=== PATIENT | male | born 1960 | race Caucasian/White ===

== ENCOUNTER 2018-06-23 08:58 | Day surgery (SDC) | payer OTHER, SELFPAY ==
[2018-06-23 09:28] VITALS: BP 121/74; PULSE 68; RESP 16; TEMP 36.3; O2SAT 95; BMI 25.5
[2018-06-23] MEDS: MIDAZOLAM 5 MG/5 ML VIAL IV (11:17)
[2018-06-23] MEDS: fentaNYL 250 MCG/5 ML INJ IV (11:17)
[2018-06-23 11:29] VITALS: BP 103/69; PULSE 59; RESP 14; O2SAT 98
--- NOTE | 2018-06-23 11:32 | PM.PREOP ---
Pre-operative Note Interval Note History & Physical reviewed/Exam performed by Physician: Yes Changes to H&P: No ASA Class (for procedural sedation): II
[2018-06-23 11:35] VITALS: BP 105/68; PULSE 58; RESP 11; O2SAT 98
--- NOTE | 2018-06-23 11:36 | PM.OP.ENDO ---
Operative Date/Time/Diagnoses Date of procedure: 06/23/18 Procedure & Clinicians Study performed: Colonoscopy Sedation: 3 mg midazolam. 100 mcg fentanyl. Moderate conscious sedation was administered by the endoscopy nurse and supervised by the endoscopist. The following parameters were monitored: Oxygen saturation, heart rate, blood pressure, and response to care. Indications: Colon cancer screening. Personal history of colon polyps. Last colonoscopy was 2012. Procedure Notes Procedure in detail: Prior to the procedure, history and physical was performed, and patient medications and allergies were reviewed. Preprocedure nursing history and assessment was reviewed. Patient identification and proposed procedure were verified by the physician and nurse in the procedure room. The physical status of the patient was reassessed after the procedure. After informed consent was obtained including risks, benefits, and alternatives, the scope was passed under direct vision. Throughout the procedure, the patient's blood pressure, pulse, and oxygen saturations were monitored continuously. The colonoscope was introduced through the anus and advanced to the cecum as identified by the appendiceal orifice and ileocecal valve. The patient tolerated the procedure well. Bowel prep was deemed adequate to detect polyps greater than 5 mm. KATIE and perianal examinations were unremarkable. Retroflexion revealed grade I internal hemorrhoids. The colon was otherwise normal appearing. Impression: Internal hemorrhoids No specimens collected Sedation minutes: 17 Complications: other (None. EBL none.) Plan for aftercare: Repeat colonoscopy for screening purposes in 5 years. Resume home medications Resume previous diet Discharged home with escort
[2018-06-23 11:39] VITALS: BP 101/66; PULSE 59; RESP 13; O2SAT 98
[2018-06-23 11:44] VITALS: BP 107/68; PULSE 69; RESP 15; O2SAT 99
[2018-06-23 12:00] VITALS: BP 110/69; PULSE 66; RESP 16; TEMP 36.7; O2SAT 100
--- NOTE | 2018-06-23 12:18 | SUR.PHASEII ---
stable phase 2 dischargedm in stable condition when ready to go.
--- NOTE | 2018-07-21 16:56 | PM.HP.1 ---
History of Present Illness Chief complaint: [id number] Colonoscopy Patient History Social History household members: spouse Family & Social History Social History: household members spouse Meds Home Medications Medication Instructions Recorded Confirmed Type aspirin 81 mg PO DAILY 06/23/18 06/23/18 History atorvastatin 40 mg PO DAILY 06/23/18 06/23/18 History bupropion HCl 450 mg PO DAILY 06/23/18 06/23/18 History cetirizine 10 mg PO DAILY 06/23/18 06/23/18 History metoprolol succinate [Toprol XL] 12.5 mg PO DAILY 06/23/18 06/23/18 History Allergies Allergy/AdvReac Type Severity Reaction Status Date / Time No Known Drug Allergies Allergy Verified 06/23/18 09:33 Review of Systems Review of Systems All systems reviewed & are unremarkable except as noted in HPI and below Exam Vital Signs (past 8 hours): Oxygen Delivery Method Room Air Narrative Exam Narrative: Awake alert oriented x3, pupils equal round reactive to light, heart regular rate and rhythm, lungs clear to auscultation bilaterally, abdomen soft nontender nondistended, no lower extremity edema Assessment & Plan Assessment & Plan narrative: Colon cancer screening, colonoscopy
== END 2018-06-23 12:17 ==
PROVIDERS: Visit Provider Internal Medicine
PROC: 0DJD8ZZ Inspection of Lower Intestinal Tract, Via Natural or Artificial Opening Endoscopic (ICD-10-PCS; CPT 45378; principal; 2018-06-23 10:30)
DX: Z86.010 Personal history of colon polyps (principal); K64.0 First degree hemorrhoids
CPT/HCPCS: 45378; J2250; J3010

== ENCOUNTER 2022-08-09 17:02 | Emergency (ER) | payer OTHER, SELFPAY ==
[2022-08-09 17:13] VITALS: BP 137/85; PULSE 76; RESP 16; TEMP 36.6; O2SAT 98; BMI 25.7
--- NOTE | 2022-08-09 17:32 | DI.RAD.S_ITS ---
PROCEDURE: XR CHEST 1V INDICATIONS: chest pain TECHNIQUE: One view of the chest was acquired. COMPARISON: , , CHEST 1 VIEW, 10/27/2013, 15:37. FINDINGS: Surgical changes and devices: Median sternotomy wires are present and appear intact. Surgical changes noted over the mediastinum. Lungs and pleura: Lungs are clear. No pleural effusions or pneumothorax. Mediastinum: Mediastinal contours appear normal. Heart size is normal. Bones and chest wall: No suspicious bony lesions. Overlying soft tissues appear unremarkable. IMPRESSION: No acute cardiopulmonary abnormalities or focal airspace disease. Dictated by: Antonio Winston M.D. on 08/09/2022 at 18:11 Approved by: Antonio Winston M.D. on 08/09/2022 at 18:11
[2022-08-09 17:38] VITALS: BP 140/87
[2022-08-09 17:39] VITALS: PULSE 75; O2SAT 98
[2022-08-09 17:43] LABS: INR 0.9 (0.9-1.3); Prothrombin Time 10.6 SECONDS (10.1-12.7)
[2022-08-09 17:46] LABS: PTT Partial Thromboplastin Tim 30 SECONDS (26-36)
[2022-08-09 17:47] LABS: Add Manual Diff / Slide Review NO; Basophils Absolute Auto 100 /uL (0-100); Basophils Percent Auto 0.9 % (0-2); Eosinophils Absolute Auto 200 /uL (0-450); Eosinophils Percent Auto 2.4 % (2-4); Hematocrit 42.8 % (41-53); Hemoglobin 14.9 g/dL (13.5-17.5); Lymphocytes Absolute Auto 1500 /uL (1100-4500); Lymphocytes Percent Auto 23.8 % (25-40); Mean Corpuscular HGB Conc 34.8 % (30-36); Mean Corpuscular Hemoglobin 32.2 PG (26-34); Mean Corpuscular Volume 92.4 fL (80-100); Monocytes Absolute Auto 500 /uL (0-900); Monocytes Percent Auto 8.8 % (3-14); Neutrophils Absolute Auto 4000 /uL (1500-7000); Neutrophils Percent Auto 64.1 % (50-75); Platelet Count 189 X10^3/uL (150-400); Red Blood Cell Count 4.63 X10^6/uL (4.5-5.9); Red Cell Distribution Width 12.4 % (11.6-14.8); White Blood Cell Count 6.2 X10^3/uL (4.5-11.0)
[2022-08-09 17:53] LABS: Alanine Aminotransferase 37 IU/L (<50); Albumin Globulin Ratio 1.3 (1.0-2.8); Alkaline Phosphatase 88 U/L (38-126); Aspartate Aminotransferase 39 IU/L (17-59); BUN Creatinine Ratio 11.7 (6-22); Bilirubin Total 0.3 mg/dL (0.2-1.3); Blood Urea Nitrogen 12 mg/dL (9-20); Calcium 9.7 mg/dL (8.4-10.2); Carbon Dioxide 31 mmol/L (22-32); Chloride 102 mmol/L (98-107); Creatine Kinase 82 U/L (55-170); Estimated Glomerular Filt Rate > 60 mL/min (>60); Globulin 3.2 g/dL (1.7-4.1); Glucose 97 mg/dL (80-110); HEMOLYSIS < 15 (0-50); Lipase 76 U/L (23-300); Magnesium 2.1 mg/dL (1.6-2.3); Potassium 4.2 mmol/L (3.4-5.1); Sodium 137 mmol/L (137-145); Total Protein 7.2 g/dL (6.3-8.2)
--- NOTE | 2022-08-09 17:53 | PC.NURSE ---
Pt reports being able to hear is pulse which started this morning. denies CP and SOB. Reports widowmaker in 2010 with angioplasty at [facility]. Reports higher than normal BP as well today. Currently 144/87
[2022-08-09 18:00] VITALS: PULSE 67; O2SAT 98
[2022-08-09 18:04] LABS: Troponin I < 0.012 ng/mL (0.01-0.034)
--- NOTE | 2022-08-09 18:16 | ED_ITS ---
HPI - Arrhythmia/Palpitations General Chief Complaint: Arrhythmia/Palpitations Stated Complaint: blood pressure high, shivering Time Seen by Provider: 08/09/22 18:06 Source: patient Mode of arrival: Ambulatory History of Present Illness HPI narrative: 61M daily smoker with a history of coronary artery disease status post myocardial infarction in 2013, hypertension and hyperlipidemia presents with his in the chief complaint of elevated blood pressures over the course of the day and a whooshing sensation in his ears. He states that he noticed his blood pressures to be elevated into the 160s earlier in the day. He denies any hea dache, head pressure, blurred vision. He denies any chest pain or shortness of breath. Denies nausea, vomiting or diarrhea. He notes that his blood pressure normalized prior to his arrival and he no longer has any symptoms whatsoever. He wanted to be evaluated given his cardiac history. Denies any change in medications or diet. He denies any exertional symptoms and has had no complaint of exercise intolerance. Related Data Home Medications Medication Instructions Recorded Confirmed aspirin 81 mg chewable tablet 81 mg PO DAILY 06/23/18 06/23/18 atorvastatin 40 mg tablet 40 mg PO DAILY 06/23/18 06/23/18 bupropion HCl 150 mg tablet,12 hr 450 mg PO DAILY 06/23/18 06/23/18 sustained-release cetirizine 10 mg capsule 10 mg PO DAILY 06/23/18 06/23/18 metoprolol succinate 25 mg 12.5 mg PO DAILY 06/23/18 06/23/18 tablet,extended release 24 hr (Toprol XL) Allergies Allergy/AdvReac Type Severity Reaction Status Date / Time No Known Drug Allergies Allergy Verified 08/09/22 17:18 Review of Systems Review of Systems Narrative: GENERAL: Denies chills, fatigue, malaise, fever, sweats. HEENT: Denies sinus pain, ear pain, sore throat, difficulty swallowing, dizziness. RESPIRATORY: Denies dyspnea, cough, wheezing, hemoptysis, sputum. CARDIOVASCULAR: See HPI GASTROINTESTINAL: Denies nausea, vomiting, abdominal pain, diarrhea, constipation, melena. : Denies dysuria, frequency, incontinence, hematuria, urinary retention. MUSCULOSKELETAL: denies weakness, joint pain, or bony pain SKIN: Denies rash, skin lesions, or other NEUROLOGIC: Denies weakness, headache, numbness, change in speech, confusion, seizures, incoordination. PSYCHIATRIC: No concerning psychosocial issues. 12 point review of systems is negative except for those stated above Patient History Social History household members: spouse Smoking Status: Current every day smoker Smoking Status: Current every day smoker alcohol intake frequency: 0-2 drinks per day Substance Use Type: does not use Exam Narrative Exam Narrative: GENERAL: [61] year old patient appears stated age. Well-developed patient, in mild distress. HEAD: Atraumatic. Normocephalic. EYES: Pupils equal round and reactive. Extraocular motions intact. No scleral icterus. No injection or drainage. ENT: Nose without bleeding, purulent drainage. Throat without erythema, tonsi llar hypertrophy or exudate. Airway patent. NECK: Trachea midline. Non tender CARDIOVASCULAR: Regular rate and rhythm without murmurs, gallops, or rubs. RESPIRATORY: Clear to auscultation. Breath sounds equal bilaterally. No wheezes, rales, or rhonchi. GASTROINTESTINAL: Abdomen soft, non-tender, nondistended. EXTREMITIES: No edema or joint tenderness. BACK: Nontender without deformity or crepitance. No flank tenderness. NEURO: AOx3. SKIN: No rash or erythema of visible areas Initial Vital Signs Initial Vital Signs: Vital Signs Temperature 97.8 F 08/09/22 17:13 Pulse Rate 76 08/09/22 17:13 Respiratory Rate 16 08/09/22 17:13 Blood Pressure 137/85 08/09/22 17:13 Pulse Oximetry 98 08/09/22 17:13 Oxygen Delivery Method Room Air 08/09/22 17:13 Course Orders Ordered: ED Orders 08/09/22 17:19 EKG-12 Lead Stat 08/09/22 17:25 Complete Blood Count AUTO DIFF Stat Comprehensive Metabolic Panel Stat Lipase Stat Magnesium Stat PTT Partial Thromboplastin [place] Stat Prothrombin Time INR Stat Troponin & CK Cardiac Panel Stat 08/09/22 17:32 XR chest 1V Stat 08/09/22 18:05 COVID19 -Nasal RAPID Stat Vital Signs Vital signs: Vital Signs - 8 hr 08/09/22 17:13 08/09/22 17:38 08/09/22 17:39 Temperature 97.8 F Pulse Rate 76 75 Respiratory Rate 16 Blood Pressure 137/85 140/87 Pulse Oximetry 98 98 Oxygen Delivery Method Room Air MDM - Arrhythmia/Palpitations Lab Data 08/09/22 17:25 08/09/22 17:25 Labs: Lab Results 08/09/22 08/09/22 08/09/22 Range/Units 17:25 17:25 17:25 WBC 6.2 (4.5-11.0) X10^3/uL RBC 4.63 (4.5-5.9) X10^6/uL Hgb 14.9 (13.5-17.5) g/dL Hct 42.8 (41-53) % MCV 92.4 (80-100) fL MCH 32.2 (26-34) PG MCHC 34.8 (30-36) % RDW 12.4 (11.6-14.8) % Plt Count 189 (150-400) X10^3/uL Neut % (Auto) 64.1 (50-75) % Lymph % (Auto) 23.8 L (25-40) % [place] % (Auto) 8.8 (3-14) % Eos % (Auto) 2.4 (2-4) % Baso % (Auto) 0.9 (0-2) % Neut # (Auto) 4000 (1144-9811) /uL Lymph # (Auto) 1500 (4744-3906) /uL [place] # (Auto) 500 (0-900) /uL Eos # (Auto) 200 (0-450) /uL Baso # (Auto) 100 (0-100) /uL PT 10.6 (10.1-12.7) SECONDS INR 0.9 (0.9-1.3) APTT 30 (26-36) SECONDS Sodium 137 (137-145) mmol/L Potassium 4.2 (3.4-5.1) mmol/L Chloride 102 (98-107) mmol/L Carbon Dioxide 31 (22-32) mmol/L BUN 12 (9-20) mg/dL Creatinine 1.03 (0.66-1.25) mg/dL Estimated GFR > 60 (>60) mL/min BUN/Creatinine Ratio 11.7 (6-22) Glucose 97 (80-110) mg/dL Calcium 9.7 (8.4-10.2) mg/dL Magnesium 2.1 (1.6-2.3) mg/dL Total Bilirubin 0.3 (0.2-1.3) mg/dL AST 39 (17-59) IU/L ALT 37 (<50) IU/L Alkaline Phosphatase 88 (38-126) U/L Total Creatine Kinase 82 (55-170) U/L CK-MB (CK-2) TNP CK-MB (CK-2) Rel Index TNP Troponin I < 0.012 (0.01-0.034) ng/mL Total Protein 7.2 (6.3-8.2) g/dL Albumin 4.0 (3.5-5.0) g/dL Globulin 3.2 (1.7-4.1) g/dL Albumin/Globulin Ratio 1.3 (1.0-2.8) Lipase 76 (23-300) U/L SARS-CoV-2 (PCR) (Negative) 08/09/22 Range/Units 18:05 WBC (4.5-11.0) X10^3/uL RBC (4.5-5.9) X10^6/uL Hgb (13.5-17.5) g/dL Hct (41-53) % MCV (80-100) fL MCH (26-34) PG MCHC (30-36) % RDW (11.6-14.8) % Plt Count (150-400) X10^3/uL Neut % (Auto) (50-75) % Lymph % (Auto) (25-40) % [place] % (Auto) (3-14) % Eos % (Auto) (2-4) % Baso % (Auto) (0-2) % Neut # (Auto) (8679-2099) /uL Lymph # (Auto) (3900-7462) /uL [place] # (Auto) (0-900) /uL Eos # (Auto) (0-450) /uL Baso # (Auto) (0-100) /uL PT (10.1-12.7) SECONDS INR (0.9-1.3) APTT (26-36) SECONDS Sodium (137-145) mmol/L Potassium (3.4-5.1) mmol/L Chloride (98-107) mmol/L Carbon Dioxide (22-32) mmol/L BUN (9-20) mg/dL Creatinine (0.66-1.25) mg/dL Estimated GFR (>60) mL/min BUN/Creatinine Ratio (6-22) Glucose (80-110) mg/dL Calcium (8.4-10.2) mg/dL Magnesium (1.6-2.3) mg/dL Total Bilirubin (0.2-1.3) mg/dL AST (17-59) IU/L ALT (<50) IU/L Alkaline Phosphatase (38-126) U/L Total Creatine Kinase (55-170) U/L CK-MB (CK-2) CK-MB (CK-2) Rel Index Troponin I (0.01-0.034) ng/mL Total Protein (6.3-8.2) g/dL Albumin (3.5-5.0) g/dL Globulin (1.7-4.1) g/dL Albumin/Globulin Ratio (1.0-2.8) Lipase (23-300) U/L SARS-CoV-2 (PCR) Negative (Negative) MDM Narrative Medical decision making narrative: [61] year old patient presents with elevated blood pressure earlier in the day and the sensation of whooshing in his ears in the absence of other symptoms Multiple etiologies for patient's symptoms considered including, but not limited to: [Hypertension, electrolyte abnormality, otitis versus other] Prior Charts reviewed in our EMR Primary Historian: patient Labs reviewed and interpreted by myself: No leukocytosis or left shift, no evidence of anemia. Electrolytes and kidney function within normal, no elevated troponin. Imaging reviewed: No acute cardiopulmonary findings Patient asymptomatic for duration of stay, vitals within normal limits, history and physical very reassuring, labs, EKG and imaging reassuring. No indication for further evaluation or treatment. Findings and discharge diagnosis discussed with patient/family followed by verbalization of understanding Return precautions discussed with patient/family whom verbalize understanding of diagnosis and plan Discharge Plan Departure Patient Disposition: Home Clinical Impression: HTN (hypertension) Instructions: High Blood Pressure Activity Restrictions/Additional Instructions: *You have been diagnosed with [hypertension resolved. As we discussed your history and physical exam as well as labs and EKG are very reassuring and there is no evidence of any need for specific or immediate intervention.] *What to do: *Please continue to take your regular medications as directed. [ ] New medication prescriptions sent to your pharmacy: [ ] [ ] New medication written as a paper prescription [ ] No new medications given *Please follow up with your primary care provider in 2-3 days, call for an appointment. Let them know you were seen in the Emergency Department and that we ask that you be seen in follow up. We will electronically transmit a record of today's note if your PCP is in our system *If you do not have a primary care provider please contact the [facility] Resource line at [phone]. They will ask some questions about your medical history and help get you set up with a doctor in the community. *Return to Emergency Department if you should have any new, worsening or concerning symptoms, such as [fever greater than 101 F, shaking chills, wo rsening pain, persistent vomiting or other bothersome symptoms] Prescriptions: No Action atorvastatin 40 mg Tablet 40 mg PO DAILY bupropion HCl 150 mg Tablet Sustained-Release 12 Hr 450 mg PO DAILY aspirin 81 mg Tablet,Chewable 81 mg PO DAILY metoprolol succinate [Toprol XL] 25 mg Tablet Extended Release 24 Hr 12.5 mg PO DAILY cetirizine 10 mg Capsule 10 mg PO DAILY Referrals: Gaby Glass MD [Physician] - Stand Alone Forms: Patient Portal/API
[2022-08-09 18:20] LABS: COVID19 -Nasal RAPID Negative (Negative)
[2022-08-09 18:30] VITALS: PULSE 58; O2SAT 99
== END 2022-08-09 18:57 | disposition home or self-care (01) ==
PROVIDERS: Emergency Medicine; Emergency Provider Emergency Medicine
DX: I10 Essential (primary) hypertension (principal); R07.9 Chest pain, unspecified; Z20.822 Contact with and (suspected) exposure to COVID-19
CPT/HCPCS: 36415; 71045; 80053; 82550; 83690; 83735; 84484; 85025; 85610; 85730; 87635; 93005; 99284; C9803